=== PATIENT | male | born 1975 | race American Indian/Alaskan Native ===

== ENCOUNTER 2017-09-29 10:02 | Emergency (ER) | payer BC, OTHER ==
[2017-09-29] MEDS ORDERED: ZOFRAN ONE (10:19)
[2017-09-29] MEDS ORDERED: BENADRYL IV ONE (10:33)
[2017-09-29] MEDS ORDERED: ZOFRAN IV ONE (10:33)
[2017-09-29] MEDS ORDERED: REGLAN IV ONE (10:33)
[2017-09-29] MEDS ORDERED: NORCO 5/325 PO ONE (10:33)
[2017-09-29] MEDS ORDERED: NACL 0.9% 500 ML 500 ML IV ONE (11:03)
--- NOTE | 2017-09-29 11:10 | Cat Scan Report ---
CT HEAD WITHOUT CONTRAST: HISTORY: Headache. TECHNIQUE: Sequential 2.5mm CT images. COMPARISON: none. FINDINGS: Cerebral Parenchyma: Within normal limits. Cerebellum: Within normal limits. Brainstem: Within normal limits. Ventricles: Normal. Sella: Normal. Extra-axial spaces: Normal. Basal Cisterns: Normal. Intracranial Hemorrhage: None. Midline Shift: None. Calvarium: Normal. Sinuses: Normal. Mastoid Air Cells: Normal. Visualized Orbits: Normal. IMPRESSION: Cranial CT scan within normal limits.
[2017-09-29 11:56] LABS: Basophils % (Auto) 0.5 % (0.0-1.8); Eosinophils % (Auto) 0.8 % (0.0-4.3); Hemoglobin 14.5 gm/dl (11.8-15.2); Mean Corpuscular HGB Conc 34 % (32-34); Mean Corpuscular Hemoglobin 32 pg (28-32); Mean Corpuscular Volume 95 fl (84-94); Platelet Count 208 K/mm3 (140-440); Red Blood Count 4.52 M/mm3 (3.65-5.03); Red Cell Distribution Width 14.2 % (13.2-15.2); White Blood Count 7.8 K/mm3 (4.5-11.0)
[2017-09-29 11:58] LABS: Alanine Aminotransferase 30 units/L (7-56); Albumin 4.2 g/dL (3.9-5); Albumin/Globulin Ratio 1.4 %; Alkaline Phosphatase 57 units/L (35-129); Anion Gap 16 mmol/L; BUN/Creatinine Ratio 12; Blood Urea Nitrogen 14 mg/dL (9-20); Calcium 9.2 mg/dL (8.4-10.2); Carbon Dioxide 30 mmol/L (22-30); Chloride 98.7 mmol/L (98-107); Glucose 112 mg/dL (75-100); Potassium 3.4 mmol/L (3.6-5.0); Sodium 141 mmol/L (137-145); Total Protein 7.2 g/dL (6.3-8.2)
[2017-09-29] MEDS ORDERED: TORADOL IV ONE (14:09)
--- NOTE | 2017-09-29 14:34 | Emergency Department Report ---
HPI - General Chief Complaint: Headache Time Seen by Provider: 09/29/17 10:32 - HPI HPI: Patient is a 42-year-old male presents for evaluation of headache. The patient reports constant headache since 2 AM. He states that his headache has been 10/ 10 in severity, throbbing in quality, and associated with nausea. The patient denies fever, head injury, neck pain, neck stiffness, vision or hearing changes , smell or taste changes, paresthesias, facial drooping, slurred speech, seizure -like activity, urine or bowel incontinence or retention, or other focal neurological deficit. ED Past Medical Hx - Past Medical History Hx Hypertension: Yes Hx Congestive Heart Failure: No Hx Diabetes: No Hx Asthma: No Hx COPD: No - Surgical History Hx Appendectomy: Yes (2010) Additional Surgical History: lyploma - Social History Smoking Status: Never Smoker Substance Use Type: None, Alcohol - Medications Home Medications: Home Medications Medication Instructions Recorded Confirmed Last Taken Type Diltiazem Cd [Cardizem Cd] 180 mg PO BID 11/17/14 11/17/14 11/17/14 12:38 History Diltiazem Cd [Cardizem CD] 240 mg PO BID #60 cap 11/18/14 Unknown Rx Lisinopril [Zestril TAB] 20 mg PO QDAY #30 tablet 11/18/14 Unknown Rx Simvastatin [Zocor TAB] 10 mg PO QHS #30 tablet 11/18/14 Unknown Rx Butalb/Acetaminophen/Caffeine 1 - 2 cap PO Q6HR PRN #15 cap 09/29/17 Unknown Rx [Fioricet 50-300-40 mg CAP] ED Review of Systems ROS: Stated complaint: HEADACHE Other details as noted in HPI Constitutional: denies: fever ENT: denies: throat or neck pain Respiratory: denies: cough, shortness of breath Cardiovascular: denies: chest pain Endocrine: denies unexplained weight loss or gain Gastrointestinal: denies: abdominal pain, nausea Genitourinary: denies: dysuria Musculoskeletal: denies: leg swelling Skin: denies: rash Neurological: reports headache Hematological/Lymphatic: denies: easy bleeding or easy bruising Psych: denies sadness or hopelessness Physical Exam - Physical Exam Vital Signs: Vital Signs 09/29/17 09/29/17 10:10 10:15 Respiratory 20 18 Rate Blood Pressure 151/70 O2 Sat by Pulse 97 97 Oximetry Physical Exam: General: well-nourished, well-developed, no acute distress Head: Normocephalic, atraumatic Eyes: normal sclera, PERRL, EOM intact ENT: Mucous membranes are pale and dry Neck: No neck stiffness, no cervical adenopathy Respiratory: Breath sounds equal bilaterally, no wheezing, rales, or rhonchi Cardio: S1 and S2 present, no murmurs, rubs, gallops, capillary refill is delayed Abdomen: Normoactive bowel sounds, soft abdomen, no rigidity, no guarding or rebound tenderness Chest WALL/Back: No tenderness to palpation of the chest wall, no CVA tenderness with percussion Musc: No pitting edema Skin: No rash Neuro: alert oriented x4, normal cognition, speech normal, no facial drooping, no uvula or tongue deviation on protrusion, no deficit with rotation of neck or shoulder shrug, no obvious gross motor deficit in the upper or lower extremities with flexion or extension at the shoulder, elbow, wrist, hip, knee, or ankle bilaterally, no obvious gross sensation deficit to crude touch or 2 pt discrimination, 2+ symmetric reflexes on DTR testing, no coordination deficit with [id number] testing, romberg negative, patient able to to ambulate without abnormal gait Psych: Normal affect ED Course Vital Signs 09/29/17 09/29/17 10:10 10:15 Respiratory 20 18 Rate Blood Pressure 151/70 O2 Sat by Pulse 97 97 Oximetry ED Medical Decision Making - Lab Data Result diagrams: 09/29/17 11:12 09/29/17 11:12 - Medical Decision Making The patient was seen and examined by myself. The patient is placed on a property assessment monitor and continuous pulse ox. On initial evaluation, the patient was found to be in no distress. As the patient has experienced a severe headache, the worst his life, has been constant for greater than 8 hours, the patient will receive a CAT scan of the head to rule out emergent intracranial disease process. IV access is established and the patient is given IV Reglan, Benadryl, and a tablet of Tylenol for his headache. CT scan the head was negative for acute intracranial disease process. Lab results are grossly unrevealing. On reevaluation patient states that his headache is improved but persisted. He is given IV Toradol for headache. The patient was reevaluated and reported that their symptoms were markedly improved. The patient is stable for discharge with outpatient follow-up. The patient is given follow-up and return instructions. The patient expressed understanding and agreed with the plan. The patient is discharged in stable condition. Critical care attestation.: If time is entered above; I have spent that time in minutes in the direct care of this critically ill patient, excluding procedure time. ED Disposition Clinical Impression: Acute non intractable tension-type headache, Dehydration Disposition: TO HOME OR SELFCARE Is pt being admited?: No Does the pt Need Aspirin: No Condition: Stable Instructions: Acute Headache (ED), Dehydration (ED) Prescriptions: Butalb/Acetaminophen/Caffeine [Fioricet 50-300-40 mg CAP] 1 - 2 cap PO Q6HR PRN #15 cap PRN Reason: Headache Referrals: PRIMARY CARE, [Primary Care Provider] - 3-5 Days Time of Disposition: 14:29
[2017-09-29 19:19] VITALS: BP 154/72
== END 2017-09-29 16:40 | disposition home or self-care (01) ==
LOC: ED 10:02
DX: G44.209 Tension-type headache, unspecified, not intractable (principal); E86.0 Dehydration; I10 Essential (primary) hypertension
CPT/HCPCS: 36415; 70450; 80053; 82962; 85025; 96374; 96375; 99284; J1200; J1885; J2405; J2765; J7040